=== PATIENT | female | born 1965 | race Caucasian/White ===

== ENCOUNTER 2017-09-03 15:22 | Emergency (ER) | payer OTHER ==
[~2017-09-03] VITALS: Ht 167.6 cm; Wt 99.3 kg
[~2017-09-03 15:22] MED LIST: BACTROBAN15 GM TOP; BENADRYL25 MG PO; BENZONATATE200 M1 PO; CLOBETASOL PROP15 GM TOP; DIOVAN160 MG PO; DOXYCYCLINE HY100 M4 PO; EXCEDRIN MIGRA1 EAC1 PO; HYDROXYZINE HCL25 M2 PO; MEDROL4 M1 PO; MELATONIN5 M5 PO; PERMETHRIN60 GM TOP; PREDNISONE10 M2 PO; PROVENTIL HFA6.7 GM INH; TRIAMCINOLONE A15 G1 TOP
[2017-09-03 15:36] VITALS: BP 137/92
--- NOTE | 2017-09-03 17:43 | ED ANKLE/FOOT INJURY COMPLAINT ---
History of Present Illness General Chief Complaint: Foot or Ankle Injury Stated Complaint: RT ANKLE PAIN, RADIATING ALL THE WAY UP LEG Source: patient Exam Limitations: no limitations Vital Signs & Intake/Output Vital Signs & Intake/Output Vital Signs Date Time Temp Pulse Resp B/P B/P Pulse O2 O2 Flow FiO2 Mean Ox Delivery Rate 09/03 1536 98.1 81 18 137/92 96 Room Air Allergies Coded Allergies: NO KNOWN ALLERGIES (04/18/12) Reconcile Medications Albuterol Sulfate (Proventil Hfa) 90 MCG HFA.AER.AD 2 PUF INH Q4 SOB Benzonatate 200 MG CAPSULE 1 CAP PO TIDPRN COUGH Doxycycline Hyclate 100 MG TABLET 1 TAB PO BID RASH/bronchitis Hydrocodone/Acetaminophen (Garfield 5-325 Tablet) 5 MG-325 MG TABLET 1 TAB PO Q4- 6 PRN PRN PAIN Methylprednisolone (Medrol) 4 MG TABLET 1 TAB PO AD RASH PACK Mupirocin Calcium (Bactroban) 2 % CREAM..G. 1 JORGE TOP TID RASH apply to affected area(s) Valsartan (Diovan) 160 MG TABLET 1 TAB PO QPM HEART (Reported) Triage Note: PT TO ER C/C EXACERBATION OF CHRONIC RIGHT ANKLE PAIN. Triage Nurses Notes Reviewed? yes Occurred: yesterday Duration: day(s): (2), constant, continues in ED, getting worse Timing: recent history Severity: moderate, severe Severity Numbers: 8 Pain/Injury Location: Right: Foot, Ankle. Method of Injury: unknown No Modifying Factors: none LMP (ages 10-50): unknown : No Patient currently breastfeeds: No HPI: 52-year-old female no significant past medical history presents for evaluation of pain in her right ankle. Patient states that she has had multiple surgeries on the right ankle over the past several years. She didn't pain in her ankle from time to time related to the weather. Patient states that yesterday the pain became much more severe. There was no trauma or triggering events. The pain is located in the anterior aspect of the ankle and radiates up her leg. It is worse with movement or weightbearing. She's been taking ibuprofen without any improvement. No numbness or tingling no swelling no redness. No knee pain or hip pain. No fevers. She states that the pain feels similar to after she had surgery.no swelling or pain. no calf swelling or pain. (Maicol Valdez) Past History Travel History Traveled to [place] past 21 day No Medical History Any Pertinent Medical History? see below for history Cardiovascular: HEART MURMUR Gastrointestinal: diverticulitis Surgical History Surgical History: non-contributory Psychosocial History What is your primary language Amharic Tobacco Use: Never used Family History Hx Contributory? No (Maicol Valdez) Review of Systems Review of Systems Constitutional: Reports: no symptoms. EENTM: Reports: no symptoms. Respiratory: Reports: no symptoms. Cardiovascular: Reports: no symptoms. GI: Reports: no symptoms. Genitourinary: Reports: no symptoms. Musculoskeletal: Reports: see HPI, joint pain, joint swelling, muscle pain, muscle stiffness. Skin: Reports: no symptoms. Neurological/Psychological: Reports: no symptoms. Hematologic/Endocrine: Reports: no symptoms. Immunologic/Allergic: Reports: no symptoms. All Other Systems: Reviewed and Negative (Maicol Valdez) Physical Exam Physical Exam General Appearance: well developed/nourished, no apparent distress, alert, awake Head: atraumatic, normal appearance Eyes: Bilateral: normal appearance, EOMI. Ears, Nose, Throat: hearing grossly normal Neck: normal inspection, supple, full range of motion Cardiovascular/Respiratory: no respiratory distress Back: normal inspection, normal range of motion, no vertebral tenderness Leg/Knee/Thigh Left: normal range of motion, normal inspection Leg/Knee/Thigh Right: normal range of motion, normal inspection Ankle Left: normal inspection, normal range of motion Ankle Right: there are well-healed surgical scars over the right foot and ankle. Range of motion of the right ankle is reduced due to pain. There is tenderness of the anterior aspect of the ankle. No crepitus no gross deformity no bruising swelling or abrasions. Neurovascular supply is intact Foot Left: normal inspection, normal range of motion Foot Right: normal inspection, normal range of motion Neuro/Vascular: normal motor function, normal sensation Tendon: normal tendon function Psychiatric: awake, alert, oriented x 3 Skin: intact, normal color, warm/dry (Maicol Valdez) Progress Differential Diagnosis: DVT, cellulitis, gout, fracture, dislocation, sprain, contusion, compartmental syndrome Plan of Care: Orders Procedure Date/time Status Durable Medical Equipment 09/03 1826 Active Patient seen and evaluated. She's had chronic right ankle pain and is had multiple surgeries in that ankle. Yesterday she noticed worsening pain than usual. There is no trauma or triggering events x-rays do not show any fracture or hardware issue. Patient was medicated here with Vicodin and is feeling better. She'll be given crutches. Rest ice elevation compression. Continue Vicodin and ibuprofen as needed. Follow-up with orthopedic surgery. Discussed return precautions patient agrees to the plan. Diagnostic Imaging: Viewed by Me: Radiology Read. Discussed w/RAD: Radiology Read. Radiology Impression: PATIENT: ETHAN HAINES PRESENT AGE: 52 PATIENT ACCOUNT NO: [id number] : 63 LOCATION: [facility] ORDERING PHYSICIAN: Maicol FINK SERVICE DATE: 09/03/17 EXAM TYPE: RAD - XRY- ANKLE 3 OR MORE VIEWS R; XRY-FOOT COMPLETE, R EXAMINATION: RIGHT FOOT AND ANKLE 6 VIEWS CLINICAL INFORMATION: Pain. COMPARISON: None. TECHNIQUE: AP, lateral, oblique views of the right foot were obtained in addition to AP, lateral and oblique views of the right ankle. FINDINGS: There is a threaded screw traversing the distal right tibia. Hardware is intact without failure or migration. There is a small plantar surface calcaneal spur. There is penciling to the distal right fibula. No acute fractures identified. There is no ankle joint effusion. IMPRESSION: Intact hardware traversing the distal right tibia without evidence of acute injury. DICTATED BY: Malachi Haynes MD DATE/TIME DICTATED:09/03/171808 TOURS HOSTESS:RENATA DATE/TIME TRANSCRIBED:09/03/171808 CONFIDENTIAL, DO NOT COPY WITHOUT APPROPRIATE AUTHORIZATION. <Electronically signed in Other Vendor System> SIGNED BY: Malachi Haynes MD 09/03/171814 (Maicol Valdez) Departure Departure Disposition: HOME OR SELF CARE Condition: Stable Clinical Impression Primary Impression: Right ankle pain Qualifiers: Chronicity: acute Qualified Code: M25.571 - Pain in right ankle and joints of right foot Referrals: [place] ANNA,Stephon Taylor (PCP/Family) Additional Instructions: Rest, keep the foot elevated. Wear Pietro wrap. Apply ice of 15-20 minutes every few hours walk with crutches. Continue ibuprofen 800 mg every 8 hours as needed for pain. Garfield for severe pain only this may cause drowsiness. Make a follow- up with your surgeon as soon as possible. Monitor symptoms return with any concerns. Departure Forms: Customer Survey General Discharge Information Prescriptions: Current Visit Scripts Hydrocodone/Acetaminophen (Garfield 5-325 Tablet) 1 TAB PO Q4-6 PRN PRN PAIN #10 TAB (Maicol Valdez) PA/SHOE SPRAYER Co-Sign Statement Statement: ED Attending supervision documentation- I saw and evaluated the patient. I have also reviewed all the pertinent lab results and diagnostic results. I agree with the findings and the plan of care as documented in the PA's/SHOE SPRAYER's documentation. x I have reviewed the ED Record and agree with the PA's/SHOE SPRAYER's documentation. [] Additions or exceptions (if any) to the PAs/SHOE SPRAYER's note and plan are summarized below: [] (Julius ANNA,Arthur)
--- NOTE | 2017-09-03 18:15 | RADIOLOGY REPORT ---
EXAMINATION: RIGHT FOOT AND ANKLE 6 VIEWS CLINICAL INFORMATION: Pain. COMPARISON: None. TECHNIQUE: AP, lateral, oblique views of the right foot were obtained in addition to AP, lateral and oblique views of the right ankle. FINDINGS: There is a threaded screw traversing the distal right tibia. Hardware is intact without failure or migration. There is a small plantar surface calcaneal spur. There is penciling to the distal right fibula. No acute fractures identified. There is no ankle joint effusion. IMPRESSION: Intact hardware traversing the distal right tibia without evidence of acute injury.
[2017-09-03] MEDS ORDERED: NORCO 5-325 TA1 EACH PO (18:26)
== END 2017-09-03 18:48 ==
LOC: ERH 15:22
DX: M25.571 Pain in right ankle and joints of right foot (principal)
CPT/HCPCS: 73610-RT; 73630-RT